=== PATIENT | female | born 1995 | race Caucasian/White ===

== ENCOUNTER 2021-09-14 07:50 | Emergency (ER) | payer OTHER, SELFPAY ==
[2021-09-14 07:51] VITALS: BP 145/87; PULSE 70; RESP 16; TEMP 36.4; O2SAT 99; BMI 27.3
--- NOTE | 2021-09-14 07:54 | ED.RN ---
[facility] CONTACTED. MAGDY WILL BE ENROUTE
--- NOTE | 2021-09-14 07:55 | RAD_ITS ---
STUDY: X-RAY - LEFT HAND, ATTENTION LEFT THUMB. REASON FOR EXAM: Female, 25 years old. Pain following injury. TECHNIQUE: 3 view(s) of the finger were obtained. COMPARISON: None. FINDINGS: Normal metacarpal head. Normal metacarpophalangeal joint. Normal proximal phalanx. Normal distal phalanx. Normal distal interphalangeal joint. Soft tissue swelling. RAD/Finger(s) Min 2 Views IMPRESSION: Soft tissue swelling. Electronically Signed: Dillan Patel MD at 8:46 EDT ,
[2021-09-14] MEDS: Ibuprofen 600 MG Tablet PO (08:58)
--- NOTE | 2021-09-14 09:22 | EX.ED.UPPERE ---
HPI History of Present Illness Chief Complaint: Upper Extremity Injury Informant: patient Onset/Context/Timing Onset: Today (Just prior to arrival) Context: Sudden Onset Timing: Continuous Quality of Pain: Aching Current Severity: Mild Maximum Severity: Moderate Worsened by: Moving, palpation mostly at proximal phalanx of thumb Relieved by: Remaining still Narrative Narrative: Agnhp-faec-ihnilvky female had a work-related injury where she accidentally hit her left thumb while using a hammer. She works at a factory. No other injuries. She is able to move it, she denies any bleeding, numbness, weakness. PFSH PFSH Medical History no medical history no medical history Home Medications NK 09/14/21 [History Last Taken Unknown] Allergy/AdvReac Type Severity Reaction Status Date / Time No Known Allergies Allergy Verified 09/14/21 07:54 Social History Smoking Status: Never smoker ROS ROS ED Constitutional Constitutional ED: Denies chills or fever(s) Musculoskeletal Musculoskeletal: Reports extremity pain; Denies neck pain Integumentary Denies Abrasions, rash or wounds Neurologic Neurologic: Denies paresthesias or weakness EXAM Physical Exam Const Vital Signs: 09/14/21 07:51 Temperature 97.6 F L Temperature Source Temporal Pulse Rate 70 Respiratory Rate 16 Blood Pressure 145/87 H Blood Pressure Mean 106 Pulse Ox 99 Oxygen Delivery Method Room Air Positive well nourished and well developed General Appearance ED: well developed and NAD Neck full ROM and supple Back/Spine normal ROM and normal to inspection Extremity full ROM Extremity Narrative: Ecchymosis at the left thumb IPJ and the proximal phalanx near the MCPJ. Full range of motion, able to oppose, all flexors and extensors intact. No other injuries. Nontender at the metacarpal and wrist. No distal phalanx injury or subungual hematoma/nail injury. Neuro oriented x3, no focal motor deficits and no sensory deficits noted Sensorium / Orientation: alert Psych mental status grossly normal and thought process normal Skin no wounds Rashes: no rashes MDM MDM MDM Narrative Medical decision making narrative: Given ice pack and ibuprofen, x-rays 3 view of the left thumb on my interpretation are negative, radiology in agreement. Discussed with the patient, she does not feel like she needs any restrictions in order to perform the duties of her job and is okay going back to work. Follow-up as needed. Radiography Diagnostic Testing: Clinical Impression(s) from Imaging Studies Finger X-Ray 09/14/21 07:55 IMPRESSION: Soft tissue swelling. Electronically Signed: Dillan Patel MD at 8:46 EDT Reading Location ID and State: [facility] / [place] , Service support , Discharge Plan Triage Chief Complaint: Upper Extremity Injury ED Provider: Long Kaufman Dx/Rx/DC Orders Clinical Impression: Contusion of left thumb Instructions: ED Finger Contusion Prescriptions: No Action NK RF: 0 Primary Care Provider: Vik Burgess Referrals: [facility] [GROUP OF PHYSICIANS] - As Needed Vik Burgess MD [Primary Care Provider] - Disposition Disposition: Home, Self Care
[2021-09-14 09:33] VITALS: BP 135/80; PULSE 72; RESP 16; O2SAT 98
--- NOTE | 2021-09-15 01:25 | ED.RN ---
WAS IN PATIENTS CHART LOOKING TO SEE IF A FROI WAS DONE/NEEDED.
== END 2021-09-14 09:34 | disposition home or self-care (01) ==
PROVIDERS: Emergency Provider Emergency Medicine; PCP Family Medicine; Visit Provider Emergency Medicine
DX: S60.012A Contusion of left thumb without damage to nail, initial encounter (principal); X58.XXXA Exposure to other specified factors, initial encounter
CPT/HCPCS: 73140; 99283

== ENCOUNTER → 2022-02-08 | Outpatient (CLI) | payer OTHER, SELFPAY ==
--- NOTE | 2022-02-08 14:26 | US_ITS ---
STUDY: THYROID ULTRASOUND REASON FOR EXAM: Female, 26 years old. Nodule noted on outside institution study TECHNIQUE: Ultrasound evaluation of the thyroid was performed with real-time and static ace-scale imaging. COMPARISON: None. FINDINGS: RIGHT LOBE: The right lobe of the thyroid gland measures 5.5 x 1.7 x 1.9 cm. There is a homogeneous echotexture. There are no demonstrated solid, cystic or complex lesions. LEFT LOBE: The left lobe of the thyroid gland measures 4.4 x 1.9 x 1.9 cm. There is a homogeneous echotexture. There is a well-defined, complex solid and cystic nodule within the left thyroid lobe is 2.1 x 1.5 x 1.5 cm. This nodule is mixed cystic and solid, hypoechoic, [id number], smoothly marginated and contains no echogenic foci. TI-RADS points: 3. TI-RADS category: TR3. This nodule is mildly suspicious. Recommend follow-up thyroid ultrasounds at 1, 3 and 5 years. ISTHMUS: The isthmus measures 0.2 cm. The regional lymph nodes are normal. US/Thyroid IMPRESSION: Complex solid and cystic 2.1 cm nodule in the left thyroid lobe. Nodule is mildly suspicious and follow-up recommendations listed above. Right thyroid lobe is mildly enlarged but free of nodularity No hyperemia No suspicious adenopathy Electronically Signed: Linwood Garcia MD at 9:54 EDT ,
== END | disposition home or self-care (01) ==
LOC: US 14:26
PROVIDERS: PCP Family Medicine; Referring Provider Family Medicine; Visit Provider Family Medicine
DX: E04.1 Nontoxic single thyroid nodule (principal)
CPT/HCPCS: 76536

== ENCOUNTER 2022-09-17 12:47 | Emergency (ER) | payer OTHER, SELFPAY ==
[2022-09-17 12:48] VITALS: BP 119/91; PULSE 75; RESP 18; TEMP 36.1; O2SAT 100; BMI 30.4
--- NOTE | 2022-09-17 13:03 | EDS_ITS ---
HPI History of Present Illness Chief Complaint: Chest Pain Informant: patient Onset/Context/Timing Onset: Month(s) Activity at onset: gradual Timing: Intermittent Quality: Positive for Aching Location: Substernal and Left Chest Worsened By: Nothing Relieved By: Nothing Associated Symptoms: Positive for Nausea, Dyspnea, Lightheadedness and Palpitations; Negative for Vomiting, Diaphoresis, Cough, Fever or Acid Reflux Narrative Narrative: Patient presents with chest pain that has been intermittent for the past couple months. Patient states nothing makes it better nothing makes it worse. Patient states it is a dull ache. Patient states it is over the substernal area but occasionally radiates into her left chest and shoulder area. Patient admits to some nausea but denies any vomiting. Patient admits to some shortness of breath but denies any cough or fever. Patient admits to occasional palpitations. Patient also admits to some dizziness and lightheadedness. Patient denies any fevers or chills. CVD Risk Factors: Negative for Hypertension, Diabetes, Hypercholesterolemia, Family History 1' </=55 or Smoking PE Risk Factors: Negative for Recent Travel/Surgery, Recent Immobilization, Prior DVT or PE, Cancer or OCP + Smoking + >/=35 PFSH PFSH Medical History Anxiety Home Medications NK 09/14/21 [History Last Taken Unknown] Allergy/AdvReac Type Severity Reaction Status Date / Time No Known Allergies Allergy Verified 09/17/22 12:47 Surgical History no surgical history no surgical history Social History Smoking Status: Never smoker ROS ROS ED Constitutional Constitutional ED: Denies chills or fever(s) Eyes Eyes: Denies blurry vision or change in vision ENT ENT ED: Denies rhinorrhea or sore throat Cardiovascular Cardiovascular: Reports chest pain, palpitations and racing heartbeat Respiratory/Chest Respiratory/Chest: Reports dyspnea; Denies cough Gastrointestinal Gastrointestinal: Reports nausea; Denies abdominal pain or vomiting Genitourinary Genitourinary ED: Denies dysuria or hematuria Musculoskeletal Musculoskeletal: Denies back pain or neck pain Integumentary Denies abscess or rash Neurologic Neurologic: Denies headache(s) or weakness Psychiatric Psychiatric: Reports anxiety Allergic/Immunologic Allergic/Immunologic ED: Denies mouth swelling or urticaria EXAM Physical Exam Const Vital Signs: 09/17/22 12:48 09/17/22 13:23 09/17/22 13:55 Temperature 96.9 F L Temperature Source Temporal Pulse Rate 75 78 Respiratory Rate 18 21 H Blood Pressure 119/91 H Blood Pressure Mean 100 Pulse Ox 100 100 Oxygen Delivery Method Room Air Room Air Room Air Positive well nourished, well developed and obese General Appearance ED: well developed Nutritional Appearance: obese HEENT normocephalic and atraumatic Eyes PERRL and EOMs intact bilaterally Neck supple and no JVD Chest Wall palpation of chest normal Resp normal respiratory effort and clear to auscultation bilaterally Effort and Inspection: Negative for respiratory distress Cardio regular rate, regular rhythm and no murmurs GI normal to inspection, nondistended, normoactive bowel sounds, soft to palpation, non-tender and non-distended Extremity normal to inspection General Extremety ED: Negative for edema or tenderness General Extremity: Negative for edema Neuro oriented x3, CN's II-XII intact bilaterally and no sensory deficits noted Sensorium / Orientation: awake and alert Motor Exam: strength 5/5 throughout Psych mental status grossly normal Heart Score History: Slightly/Non-Suspicious ECG: Nonspecific Repolarization Age: </= 45 years Risk Factors: No Risk Factors Troponin: </= Normal Limit Score: 1 MDM MDM MDM Narrative Medical decision making narrative: Differential diagnosis includes cardiac dysrhythmia, cardiac ischemia, musculoskeletal pain, anxiety, pneumothorax, and pneumonia. CBC will be obtained to assess for leukocytosis and anemia. Basic metabolic profile will be obtained to assess for renal function and electrolyte abnormality. High- sensitivity troponin will be obtained to assess for cardiac ischemia. EKG will be obtained to assess for cardiac dysrhythmia and cardiac ischemia. Chest x-ray will be obtained to assess for pneumonia and pneumothorax. Lab Data Attestation: I reviewed the patient's lab results. Lab results narrative: CBC was reviewed and was within normal limits. Basic metabolic profile was reviewed and was essentially within normal limits. High-sensitivity troponin was reviewed and was normal at less than 3. Labs: Laboratory Results - last 24 hr 09/17/22 09/17/22 13:20 13:20 WBC 6.1 RBC 4.75 Hgb 13.1 Hct 40.5 MCV 85.3 MCH 27.6 MCHC 32.3 RDW Std Deviation 41.6 RDW Coeff of Ana 13.4 Plt Count 213 MPV 10.5 Immature Gran % (Auto) 0.300 Neut % (Auto) 62.3 Lymph % (Auto) 30.0 [place] % (Auto) 6.2 Eos % (Auto) 0.7 Baso % (Auto) 0.5 Absolute Neuts (auto) 3.8 Absolute Lymphs (auto) 1.84 Nucleated RBC % 0 Sodium 138 Potassium 3.8 Chloride 108 H Carbon Dioxide 26.0 Anion Gap 4 L BUN 14 Creatinine 0.92 Estim Creat Clear Calc 91.84 Est GFR (MDRD) Af Amer 93 Est GFR (MDRD) Non-Af 77 BUN/Creatinine Ratio 15.3 Glucose 96 Calcium 9.1 Troponin I High Sens < 3 L Radiography Chest X-Ray - ED: 1 View, Read by ED Physician, Read by Radiologist and No Acute Disease Diagnostic Testing: Clinical Impression(s) from Imaging Studies Chest X-Ray 09/17/22 13:22 IMPRESSION: Normal x-ray examination of the chest. Electronically Signed: Dillan Patel MD at 13:40 EDT , Portable 1 view chest x-ray was obtained. On my independent interpretation, lung brice are clear. There is normal cardiac silhouette. Bony thorax is normal. There is no acute process noted. Radiologist also interpreted the x- ray and agrees. EKG Initial EKG: Attestation: I personally reviewed and interpreted this EKG as follows: Interpretation: Sinus Rhythm (74) and Non-Specific ST Changes Prior EKG tracings: not available for review Prior: No Prior Treatment and Re-Evaluation :: Patient was given aspirin here. Patient is feeling better on reevaluation. Patient was advised of her findings. Patient has a HEART score of 1. Patient was advised that this is low risk for acute cardiac event. Patient was instructed to follow-up with her primary care physician in 5 to 7 days for further evaluation. Patient understood and was agreeable with the plan. All questions were answered. Discharge Plan Triage Chief Complaint: Chest Pain ED Provider: Emeterio Kearney Dx/Rx/DC Orders Clinical Impression: Chest pain of uncertain etiology Instructions: ED Chest Pain, Uncertain Cause Prescriptions: No Action NK Primary Care Provider: Vik Burgess Referrals: Vik Burgess MD [Primary Care Provider] - 5-7 Days Disposition Disposition: Home, Self Care
--- NOTE | 2022-09-17 13:17 | NURSING ---
NO OLD EKGS
[2022-09-17] MEDS: Aspirin 81 MG TAB.CHEW 324 MG PO (13:19)
--- NOTE | 2022-09-17 13:22 | RAD_ITS ---
STUDY: X-RAY CHEST REASON FOR EXAM: Female, 26 years old. Chest pain TECHNIQUE: Single AP portable view of the chest. COMPARISON: None. FINDINGS: EKG electrodes are seen. The lungs are clear and expanded. There is no demonstrated pleural abnormality. Normal size heart. Normal mediastinum and ruthann. Normal visualized pulmonary arteries. Normal visualized aortic arch and descending thoracic aorta. Normal visualized thoracic spine. Normal visualized ribs, clavicles, and shoulders. There is no demonstrated abnormality of the visualized soft tissue structures of the upper abdomen. RAD/Chest 1 View (Portable) IMPRESSION: Normal x-ray examination of the chest. Electronically Signed: Dillan Patel MD at 13:40 EDT ,
[2022-09-17 13:33] LABS: Absolute Lymphocyte Count 1.84 X10^3/uL (0.83-4.51); Absolute Neutrophil Count 3.8 X10^3/uL (2.0-7.7); Basophil# 0.03 X10^3/uL; Basophil% 0.5 % (0-1); Eosinophil# 0.04 X10^3/uL; Eosinophils% 0.7 % (0-5); Hematocrit 40.5 % (37-47); Hemoglobin 13.1 g/dL (12.0-15.0); Lymphocyte # 1.84 X10^3/ul (0.83-4.51); Mean Corp Hgb Conc 32.3 g/dL (32-36); Mean Corpuscular Hgb 27.6 pg (27.0-32.0); Mean Corpuscular Volume 85.3 fL (81-99); Mean Platelet Vol. 10.5 fl (6.2-12.0); Monocyte# 0.38 X10^3/uL; Monocyte% 6.2 % (0-10); NRBC Flagged by Analyzer 0 % (0-5); Neutrophil # 3.82 X10^3/uL (2.7-7.7); Neutrophil % 62.3 % (47-70); Platelet Count 213 K/mm3 (150-450); RBC Distribution Width CV 13.4 % (11.6-14.6); RBC Distribution Width SD 41.6 fl (35.1-43.9); Red Blood Count 4.75 M/mm3 (4.2-5.4); White Blood Count 6.1 K/mm3 (4.4-11.0)
[2022-09-17 13:49] LABS: Anion Gap 4 (5-15); BUN 14 mg/dL (7-18); BUN/Creat Ratio 15.3 RATIO (10-20); Calcium,Total 9.1 mg/dL (8.5-10.1); Chloride 108 mmol/L (98-107); Creatinine, Serum 0.92 mg/dL (0.55-1.02); EST Glomerular Filtration Rate 77 mL/min (>60); Est Glom Filt Rate - Afr Amer 93 mL/min (>60); Estimated Creatinine Clearance 91.84 ml/min; Glucose 96 mg/dL (74-106); Potassium 3.8 mmol/L (3.5-5.1); Sodium Level 138 mmol/L (136-145); Troponin-I HS < 3 pg/mL (3.0-54.0)
[2022-09-17 13:55] VITALS: PULSE 78; RESP 21; O2SAT 100
[2022-09-17 14:09] VITALS: PULSE 83; RESP 18; O2SAT 99
== END 2022-09-17 14:33 | disposition home or self-care (01) ==
PROVIDERS: Emergency Provider Emergency Medicine; PCP Family Medicine; Visit Provider Emergency Medicine
DX: R07.9 Chest pain, unspecified (principal)
CPT/HCPCS: 71045; 80048; 84484; 85025; 93005; 99285; A4216

== ENCOUNTER → 2022-10-07 | Outpatient (CLI) | payer OTHER, SELFPAY ==
--- NOTE | 2022-10-07 13:24 | US_ITS ---
INDICATION: THYROID NODULE EXAMINATION: Ultrasound US Thyroid (eg thyroid, parathyroid, parotid) TECHNIQUE: Phillips scale and color doppler imaging was performed of the thyroid gland. COMPARISON: None. FINDINGS: RIGHT THYROID LOBE: 4.9 x 1.6 x 1.5 cm. Homogeneous echotexture with normal vascularity. [No thyroid nodules are present. LEFT THYROID LOBE: 4.2 x 2.1 x 1.7 cm. Homogeneous echotexture with normal vascularity. [2.1 x 1.5 midpole nodule is solid with smooth margins without evidence of increased vascularity. T RADS category 3. ISTHMUS: 2 mm. No thyroid nodules are present. US/Thyroid IMPRESSION: Uninodular goiter with single nodule left lobe detailed above. Electronically Signed: Eloy Garza MD, TOMAS at 16:51 EDT ,
[2022-10-07 14:47] LABS: D-Dimer Quantitative (DVT/PE) < 0.27 FEU/ug/m (0.27-0.49)
== END | disposition home or self-care (01) ==
PROVIDERS: PCP Family Medicine; Referring Provider Family Medicine; Visit Provider Family Medicine
DX: E04.1 Nontoxic single thyroid nodule (principal); R07.9 Chest pain, unspecified
CPT/HCPCS: 36415; 76536; 85379